=== PATIENT | male | born 1985 | race Caucasian/White ===

== ENCOUNTER → 2017-12-18 | Outpatient (CLI) | payer OTHER ==
[~2017-12-18] MED LIST: MOTRIN 200200 MG/TAB PO; NEXIUM 20MG20 MG PO
[2017-12-18 18:09] LABS: BASO # 0.1 (0.0-0.2); BASO % 0.9 % (0.0-2.0); EOS # 0.4 (0.0-0.7); EOS % 5.2 % (0-4.0); GRAN % 57.8 % (42.2-75.2); HEMATOCRIT 41.5 % (42.0-52.0); HEMOGLOBIN 13.6 g/dl (13.5-18.0); LYMPH % 29.5 % (20.0-51.0); MEAN CELL VOLUME 85 fl (80.0-100.0); MEAN CORPUSCULAR HEMOGLOBIN 28 pg (27.0-31.0); MEAN CORPUSCULAR HGB CONC 33 g/dl (33.0-37.0); MEAN PLATELET VOLUME 9.4 fl (7.4-10.4); MONO # 0.4 (0.1-0.6); MONO % 6.3 % (1.7-9.3); PLATELET COUNT 313 K/mm3 (130-400); RED BLOOD COUNT 4.87 M/mm3 (4.20-5.60); REDCELL DISTRIBUTION WIDTH-CV 13.2 % (11.5-14.5)
[2017-12-18 18:20] LABS: ALBUMIN 4.9 gm/dL (3.5-5.0); BILIRUBIN,TOTAL 0.4 mg/dL (0.0-1.0); CALCIUM 9.7 mg/dL (8.4-10.2); CREATININE, serum 1.16 mg/dL (0.66-1.25); TOTAL PROTEIN 7.9 gm/dL (6.4-8.2)
== END ==
LOC: COL.RAD 17:46
PROVIDERS: Physician Assistant
DX: K76.0 Fatty (change of) liver, not elsewhere classified (principal); R93.5 Abnormal findings on diagnostic imaging of other abdominal regions, including retroperitoneum
CPT/HCPCS: Q9967

== ENCOUNTER 2017-12-21 13:09 | Inpatient (IN) | payer OTHER ==
[2017-12-21] VITALS (8 sets, daily range): BP systolic 122–150; BP diastolic 75–93; PULSE 67–81; TEMP 97.4–98.9
[~2017-12-21] VITALS: Ht 182.9 cm; Wt 105.5 kg
[2017-12-21] MEDS ORDERED: NEXIUM 20MG20 MG PO (14:22)
[2017-12-21] MEDS ORDERED: MOTRIN 200200 MG/TAB PO (14:23)
[2017-12-22] VITALS (7 sets, daily range): BP systolic 120–142; BP diastolic 53–90; PULSE 74–84; TEMP 97.4–98.8
[2017-12-22 06:50] LABS: HEMATOCRIT 43.5 % (42.0-52.0)
[2017-12-22 06:57] LABS: CALCIUM 9.5 mg/dL (8.4-10.2); CREATININE, serum 1.28 mg/dL (0.66-1.25); POTASSIUM 4.4 mmol/L (3.4-5.0)
[2017-12-23 01:32] VITALS: BP 131/84; PULSE 82; TEMP 98.4
[2017-12-23 05:52] VITALS: BP 153/94; PULSE 101; TEMP 98.1
[2017-12-23 09:11] LABS: BASO % 0.2 % (0.0-2.0); EOS % 0.1 % (0-4.0); GRAN # 13.4 (1.4-6.5); GRAN % 84.1 % (42.2-75.2); HEMATOCRIT 37.6 % (42.0-52.0); HEMOGLOBIN 12.4 g/dl (13.5-18.0); LYMPH # 1.3 (1.2-3.4); LYMPH % 7.9 % (20.0-51.0); MEAN CELL VOLUME 86 fl (80.0-100.0); MEAN CORPUSCULAR HEMOGLOBIN 28 pg (27.0-31.0); MEAN CORPUSCULAR HGB CONC 33 g/dl (33.0-37.0); MEAN PLATELET VOLUME 9.5 fl (7.4-10.4); MONO # 1.2 (0.1-0.6); MONO % 7.3 % (1.7-9.3); PLATELET COUNT 407 K/mm3 (130-400); RED BLOOD COUNT 4.39 M/mm3 (4.20-5.60); REDCELL DISTRIBUTION WIDTH-CV 13.6 % (11.5-14.5)
[2017-12-23 09:25] LABS: ALBUMIN 4.6 gm/dL (3.5-5.0); BILIRUBIN,TOTAL 0.6 mg/dL (0.0-1.0); CALCIUM 9.3 mg/dL (8.4-10.2); CREATININE, serum 1.24 mg/dL (0.66-1.25); POTASSIUM 4.5 mmol/L (3.4-5.0); TOTAL PROTEIN 7.3 gm/dL (6.4-8.2)
[2017-12-23 14:18] VITALS: BP 131/68; PULSE 116; TEMP 97.3
[2017-12-23 17:22] VITALS: BP 129/74; PULSE 108; TEMP 97.4
[2017-12-23 19:10] LABS: HEMATOCRIT 30.5 % (42.0-52.0); HEMOGLOBIN 9.9 g/dl (13.5-18.0)
[2017-12-23 21:33] VITALS: BP 140/82; PULSE 106; TEMP 98.8
[2017-12-24 01:34] VITALS: BP 137/79; PULSE 86; TEMP 98.6
[2017-12-24 05:08] VITALS: BP 130/70; PULSE 95; TEMP 98.6
[2017-12-24 07:12] LABS: BASO % 0.4 % (0.0-2.0); EOS # 0.1 (0.0-0.7); EOS % 0.7 % (0-4.0); GRAN % 56.7 % (42.2-75.2); LYMPH # 1.6 (1.2-3.4); MEAN CELL VOLUME 87 fl (80.0-100.0); MEAN CORPUSCULAR HGB CONC 32 g/dl (33.0-37.0); MEAN PLATELET VOLUME 10.1 fl (7.4-10.4); MONO # 1.4 (0.1-0.6); MONO % 19.9 % (1.7-9.3); RED BLOOD COUNT 2.98 M/mm3 (4.20-5.60); REDCELL DISTRIBUTION WIDTH-CV 13.8 % (11.5-14.5)
[2017-12-24 07:19] LABS: HEMATOCRIT 25.8 % (42.0-52.0); HEMOGLOBIN 8.3 g/dl (13.5-18.0); MEAN CORPUSCULAR HEMOGLOBIN 28 pg (27.0-31.0); PLATELET COUNT 299 K/mm3 (130-400)
[2017-12-24 07:37] LABS: CALCIUM 8.4 mg/dL (8.4-10.2); CREATININE, serum 1.05 mg/dL (0.66-1.25); POTASSIUM 4.4 mmol/L (3.4-5.0)
[2017-12-24 13:31] VITALS: BP 140/76; PULSE 93; TEMP 97.7
[2017-12-24 17:35] VITALS: BP 130/75; PULSE 89; TEMP 97.2
[2017-12-24 21:17] VITALS: BP 129/71; PULSE 92; TEMP 97.6
[2017-12-25] VITALS (9 sets, daily range): BP systolic 129–146; BP diastolic 68–84; PULSE 86–98; TEMP 98.2–99.6
[2017-12-25 10:40] LABS: BASO # 0.1 (0.0-0.2); BASO % 0.9 % (0.0-2.0); EOS # 0.2 (0.0-0.7); EOS % 4.1 % (0-4.0); GRAN % 57.3 % (42.2-75.2); LYMPH # 1.3 (1.2-3.4); LYMPH % 23.7 % (20.0-51.0); MEAN CELL VOLUME 89 fl (80.0-100.0); MEAN CORPUSCULAR HGB CONC 32 g/dl (33.0-37.0); MEAN PLATELET VOLUME 9.8 fl (7.4-10.4); MONO # 0.7 (0.1-0.6); MONO % 13.6 % (1.7-9.3); PLATELET COUNT 254 K/mm3 (130-400); RED BLOOD COUNT 2.27 M/mm3 (4.20-5.60)
[2017-12-25 10:42] LABS: HEMATOCRIT 20.1 % (42.0-52.0); HEMOGLOBIN 6.4 g/dl (13.5-18.0); MEAN CORPUSCULAR HEMOGLOBIN 28 pg (27.0-31.0)
[2017-12-25 11:01] LABS: CALCIUM 8.2 mg/dL (8.4-10.2); CREATININE, serum 0.97 mg/dL (0.66-1.25); POTASSIUM 3.9 mmol/L (3.4-5.0)
[2017-12-25 20:44] LABS: HEMATOCRIT 20.9 % (42.0-52.0); HEMOGLOBIN 6.7 g/dl (13.5-18.0)
[2017-12-25 21:42] LABS: INR 1.4 (0.8-3.0); PROTHROMBIN TIME 16.6 SECONDS (9.7-12.8)
[2017-12-26] VITALS (7 sets, daily range): BP systolic 135–154; BP diastolic 69–87; PULSE 80–92; TEMP 98.4–99.3
[2017-12-26 03:20] LABS: HEMATOCRIT 21.7 % (42.0-52.0); HEMOGLOBIN 7.2 g/dl (13.5-18.0)
[2017-12-26 09:30] LABS: HEMATOCRIT 24.3 % (42.0-52.0); HEMOGLOBIN 7.8 g/dl (13.5-18.0)
[2017-12-26 15:28] LABS: HEMATOCRIT 21.6 % (42.0-52.0); HEMOGLOBIN 7.2 g/dl (13.5-18.0)
[2017-12-26 15:31] LABS: INR 1.4 (0.8-3.0); PROTHROMBIN TIME 16.6 SECONDS (9.7-12.8)
[2017-12-26 21:10] LABS: HEMATOCRIT 22.4 % (42.0-52.0); HEMOGLOBIN 7.5 g/dl (13.5-18.0)
[2017-12-27 06:11] VITALS: BP 149/94; PULSE 80; TEMP 98.3
[2017-12-27 07:16] LABS: MEAN CELL VOLUME 87 fl (80.0-100.0); MEAN CORPUSCULAR HGB CONC 32 g/dl (33.0-37.0); MEAN PLATELET VOLUME 9.4 fl (7.4-10.4); PLATELET COUNT 325 K/mm3 (130-400); RED BLOOD COUNT 2.84 M/mm3 (4.20-5.60)
[2017-12-27 07:19] LABS: HEMATOCRIT 24.7 % (42.0-52.0); MEAN CORPUSCULAR HEMOGLOBIN 28 pg (27.0-31.0)
[2017-12-27 09:27] VITALS: BP 131/71; PULSE 78; TEMP 98.1
[2017-12-27 13:03] LABS: HEMATOCRIT 25.4 % (42.0-52.0); HEMOGLOBIN 8.2 g/dl (13.5-18.0)
[2017-12-27 13:59] VITALS: BP 154/87; PULSE 86; TEMP 98.5
[2017-12-27 17:54] VITALS: BP 133/85; PULSE 75; TEMP 97.9
[2017-12-27 21:23] VITALS: BP 135/84; PULSE 81; TEMP 98.4
[2017-12-27 21:43] LABS: HEMATOCRIT 24.2 % (42.0-52.0); HEMOGLOBIN 7.9 g/dl (13.5-18.0)
[2017-12-28 02:18] VITALS: BP 137/80; PULSE 86; TEMP 98.4
[2017-12-28 05:46] VITALS: BP 132/79; PULSE 77; TEMP 98.1
[2017-12-28 06:51] LABS: HEMATOCRIT 24.5 % (42.0-52.0); HEMOGLOBIN 8.1 g/dl (13.5-18.0)
[2017-12-28 09:45] VITALS: BP 127/66; PULSE 79; TEMP 98.4
[2017-12-28 13:28] VITALS: BP 133/85; PULSE 76; TEMP 98.5
== END 2017-12-28 14:30 | disposition home or self-care (01) | DRG 329 ==
LOC: SDCO 13:09 → SURG 20:45 → SDCO 12-22 14:55 → SURG 12-22 14:57
PROVIDERS: Surgery
PROC: 0DBH0ZZ Excision of Cecum, Open Approach (ICD-10-PCS; principal; 2017-12-21 15:00)
PROC: 0WJP4ZZ Inspection of Gastrointestinal Tract, Percutaneous Endoscopic Approach (ICD-10-PCS; 2017-12-21 15:00)
DX: T18.4XXA Foreign body in colon, initial encounter (principal); K65.1 Peritoneal abscess; K91.31 Postprocedural partial intestinal obstruction; K92.1 Melena; K21.9 Gastro-esophageal reflux disease without esophagitis; D50.0 Iron deficiency anemia secondary to blood loss (chronic)
CPT/HCPCS: OP; A4314; A9284; C9113; J0330; J0690; J1100; J1170; J1650; J2405; J2550; J2704; J2710; J2765; J3010; J3480; J7030; J7042; J7120; P9016

== ENCOUNTER → 2018-07-01 | Outpatient (CLI) | payer OTHER | LOC: COL.LAB 14:23 | DX: Z01.89 Encounter for other specified special examinations (principal) ==

== ENCOUNTER 2018-07-22 09:11 | Day surgery (SDC) | payer OTHER ==
[~2018-07-22] VITALS: Ht 182.9 cm; Wt 95.9 kg
[2018-07-22] MEDS ORDERED: PROBIOTIC ACID1 EAC3 PO (09:37)
[2018-07-22 09:40] VITALS: BP 144/93; PULSE 82; TEMP 97.6
[2018-07-22 11:20] VITALS: BP 149/99; PULSE 73; TEMP 98.7
[2018-07-22 11:35] VITALS: BP 125/89; PULSE 63
[2018-07-22 11:50] VITALS: BP 126/89; PULSE 72
[2018-07-22 12:05] VITALS: BP 128/90; PULSE 65
== END 2018-07-22 13:25 | disposition home or self-care (01) ==
LOC: SDCO 09:11
DX: R19.7 Diarrhea, unspecified (principal); K21.0 Gastro-esophageal reflux disease with esophagitis; K92.1 Melena; R15.2 Fecal urgency; R63.4 Abnormal weight loss; R53.83 Other fatigue; Z90.49 Acquired absence of other specified parts of digestive tract; Z80.0 Family history of malignant neoplasm of digestive organs
CPT/HCPCS: J2250; J2405; J3010; J7030

== ENCOUNTER → 2018-11-21 | Outpatient (CLI) | payer OTHER ==
[~2018-11-21] MED LIST changes: +PROBIOTIC ACID1 EAC3 PO
== END ==
LOC: MC.RAD 10:39
DX: N63.31 Unspecified lump in axillary tail of the right breast (principal); N64.59 Other signs and symptoms in breast

== ENCOUNTER → 2019-06-13 | Outpatient (CLI) | payer OTHER | LOC: COL.RAD 06-06 08:15 | DX: K76.0 Fatty (change of) liver, not elsewhere classified (principal) ==

== ENCOUNTER 2021-07-31 08:30 | Outpatient (RCR) | payer OTHER | END 2021-08-12 | disposition home or self-care (01) | LOC: PT.GENESIS | DX: M25.811 Other specified joint disorders, right shoulder (principal) ==

== ENCOUNTER → 2021-09-02 | Outpatient (CLI) | payer OTHER | LOC: COL.RAD 09-01 07:30 | DX: R16.0 Hepatomegaly, not elsewhere classified (principal); K76.0 Fatty (change of) liver, not elsewhere classified; R74.8 Abnormal levels of other serum enzymes ==

== ENCOUNTER 2024-09-18 13:46 | Emergency (ER) | payer OTHER ==
[~2024-09-18] VITALS: Ht 182.9 cm; Wt 104.5 kg
[2024-09-18 13:55] VITALS: TEMP 97.5
[2024-09-18] MEDS ORDERED: Meclizine 25 MG TAB PO ONE (15:15)
[2024-09-18] MEDS ORDERED: ANTIVERT 25MG25 MG PO (17:04)
[2024-09-18] MEDS ORDERED: ZOFRAN ODT4 MG PO (17:04)
[2024-09-18 17:14] VITALS: BP 118/82; PULSE 67
== END 2024-09-18 17:14 | disposition home or self-care (01) ==
LOC: COL.ER 13:46
DX: R42 Dizziness and giddiness (principal)